=== PATIENT | male | born 1985 | race Caucasian/White ===

== ENCOUNTER 2016-08-07 06:06 | Emergency (ER) | payer SELFPAY ==
[2016-08-07] MEDS ORDERED: PENICILLIN V POTASSIUM 500 MG TABLET PO ONE (08:31)
[2016-08-07] MEDS ORDERED: HYDROCODONE/ACETAMINOPHEN 5-325 MG 6 TAB/DSPK PO PRN (08:31)
--- NOTE | 2016-08-07 08:33 | ER Document Report ---
HPI - HPI Patient complains to provider of: dental pain Onset: Other - 3 days Onset/Duration: Persistent Quality of pain: Achy Pain Level: 5 Context: Patient complains of three-day history of dental pain to right lower jaw. Patient denies any fever or facial swelling. Patient does have an appointment with the dentist next week. Associated Symptoms: Other - Dental pain. denies: Fever, Sore throat Exacerbated by: Denies Relieved by: Denies Similar symptoms previously: Yes Recently seen / treated by doctor: No - ROS ROS below otherwise negative: Yes Systems Reviewed and Negative: Yes All other systems reviewed and negative - CONSTITUTIONAL Constitutional: DENIES: Fever - EENT Notes: Dental pain - RESPIRATORY Respiratory: DENIES: Coughing - GASTROINTESTINAL Gastrointestinal: DENIES: Nausea, Patient vomiting - REPRODUCTIVE Reproductive: DENIES: : - MUSCULOSKELETAL Musculoskeletal: DENIES: Back Pain, Neck Pain - DERM Skin Color: Normal Skin Problems: None Past Medical History - General Information source: Patient - Social History Smoking Status: Former Smoker Frequency of alcohol use: Rare Drug Abuse: None Occupation: HV[employer] Family History: Arthritis, CAD, CVA, DM, Hyperlipidemia, Hypertension Pulmonary Medical History: Reports: Hx Pneumonia Renal/ Medical History: Denies: Hx Peritoneal Dialysis Musculoskeltal Medical History: Reports Hx Musculoskeletal Trauma - sprained ankle Psychiatric Medical History: Reports: Hx Attention Deficit Hyperactivity Disorder Surgical Hx: Negative - Immunizations Immunizations up to date: No Hx Diphtheria, Pertussis, Tetanus Vaccination: No Vertical Provider Document - CONSTITUTIONAL Agree With Documented VS: Yes Exam Limitations: No Limitations General Appearance: WD/WN, No Apparent Distress - INFECTION CONTROL TRAVEL OUTSIDE OF THE [place] IN LAST 30 DAYS: No - HEENT HEENT: Atraumatic, Normocephalic. negative: Pharyngeal Exudate, Pharyngeal Tenderness, Pharyngeal Erythema, Tympanic Membrane Red, Tympanic Membrane Bulging Mouth Diagram: 1 - Dental fracture, decay, no gingival abscess, no sublingual or submental swelling, no trismus. - NECK Neck: Normal Inspection, Supple. negative: Lymphadenopathy-Left, Lymphadenopathy-Right - RESPIRATORY Respiratory: Breath Sounds Normal, No Respiratory Distress O2 Sat by Pulse Oximetry: 98 - CARDIOVASCULAR Cardiovascular: Regular Rate, Regular Rhythm, No Murmur - BACK Back: Normal Inspection - MUSCULOSKELETAL/EXTREMETIES Musculoskeletal/Extremeties: MAEW - NEURO Level of Consciousness: Awake, Alert, Appropriate Motor/Sensory: No Motor Deficit - DERM Integumentary: Warm, Dry, No Rash Course - Vital Signs Vital signs: Temp Pulse Resp BP Pulse Ox 97.5 F 84 16 146/95 H 98 08/07/16 06:09 08/07/16 06:09 08/07/16 06:09 08/07/16 06:09 08/07/16 06:09 Discharge - Discharge Clinical Impression: Toothache, Elevated blood pressure reading Condition: Stable Disposition: HOME, SELF-CARE Instructions: Toothache (OM), Penicillin V K (OM), Oral Narcotic Medication ( OM) Additional Instructions: Return immediately for any new or worsening symptoms Followup with your primary care provider, call tomorrow to make a followup appointment Your blood pressure was elevated today, recheck with primary doctor in 2 days to have this reevaluated Follow-up with your dentist as planned Prescriptions: Hydrocodone/Acetaminophen [[place] 5-325 Tablet] 1 each PO Q4 PRN #12 tablet PRN Reason: Naproxen [Naprosyn 250 Nmg Tablet] 1 tab PO BID #14 tablet Penicillin V Potassium [Penicillin Vk 500 mg Tablet] 500 mg PO BID #20 tablet Referrals: [facility] [Provider Group] - Follow up as needed [facility] [Provider Group] - Follow up tomorrow
[2016-08-07 08:48] VITALS: BP 135/94
== END 2016-08-07 08:58 | disposition home or self-care (01) ==
LOC: ER 06:06
DX: K08.89 Other specified disorders of teeth and supporting structures (principal); R03.0 Elevated blood-pressure reading, without diagnosis of hypertension; R68.84 Jaw pain; Z87.891 Personal history of nicotine dependence
CPT/HCPCS: 99282

== ENCOUNTER 2018-01-27 18:40 | Observation (INO) | payer BC ==
[2018-01-27] MEDS ORDERED: LIDOCAINE 2% VISCOUS SOLN 20 ML UDCUP PO ONE (20:34)
[2018-01-27] MEDS ORDERED: MAG HYDROX/AL HYDROX/SIMETH SUSP 30 ML UDCUP PO ONE (20:34)
[2018-01-27] MEDS ORDERED: METOCLOPRAMIDE HCL ORAL SOLN 10 MG/10 ML UDCUP PO ONE (20:34)
--- NOTE | 2018-01-27 20:37 | ER Document Report ---
HPI - HPI Pain Level: 2 Notes: Patient is an otherwise healthy 32-year-old male who presents with chief complaint of ingestion of foreign body. Patient states that he swallowed a piece of steak and he feels that it got stuck. Patient reports that he immediately drank some water was able to pass the water at the time. The steak is stuck in the epigastric area. Patient speaking in full and complete sentences without difficulty and appears to be swallowing his saliva. - REPRODUCTIVE Reproductive: DENIES: : - DERM Skin Color: Normal Past Medical History - General Information source: Patient - Social History Smoking Status: Former Smoker Chew tobacco use (# tins/day): No Frequency of alcohol use: Rare Drug Abuse: None Family History: Arthritis, CAD, CVA, DM, Hyperlipidemia, Hypertension Patient has suicidal ideation: No Patient has homicidal ideation: No Pulmonary Medical History: Reports: Hx Pneumonia Renal/ Medical History: Denies: Hx Peritoneal Dialysis Musculoskeletal Medical History: Reports Hx Musculoskeletal Trauma - sprained ankle Psychiatric Medical History: Reports: Hx Attention Deficit Hyperactivity Disorder - Immunizations Immunizations up to date: No Hx Diphtheria, Pertussis, Tetanus Vaccination: No Vertical Provider Document - CONSTITUTIONAL Notes: PHYSICAL EXAMINATION: GENERAL: Well-appearing, well-nourished and in no acute distress. HEAD: Atraumatic, normocephalic. EYES: Pupils equal round and reactive to light, extraocular movements intact, sclera anicteric, conjunctiva are normal. ENT: Nares patent, oropharynx clear without exudates. Moist mucous membranes. NECK: Normal range of motion, supple without lymphadenopathy LUNGS: Breath sounds clear to auscultation bilaterally and equal. No wheezes rales or rhonchi. HEART: Regular rate and rhythm without murmurs ABDOMEN: Soft, nontender, nondistended abdomen. No guarding, no rebound. No masses appreciated. Musculoskeletal: Normal range of motion, no pitting or edema. No cyanosis. NEUROLOGICAL: Cranial nerves grossly intact. Normal speech, normal gait. Normal sensory, motor exams PSYCH: Normal mood, normal affect. SKIN: Warm, Dry, normal turgor, no rashes or lesions noted. - INFECTION CONTROL TRAVEL OUTSIDE OF THE [place] IN LAST 30 DAYS: No Course - Re-evaluation Re-evalutation: Patient speaking in full and complete sentences, swallowing his saliva without difficulty. Consulted case with Dr. Perez who recommended attempting a GI cocktail as patient states he was able to tolerate p.o. intake at home after the ingestion. Attempted GI cocktail, patient immediately vomited and states now he feels the piece of steak higher than when he arrived. Consulted surgery, Dr. Helton who recommends 1 mg glucagon IV and he will come to see the patient. Dr. Helton accepts patient for admission, he will take him for endoscopy. - Vital Signs Vital signs: Temp Pulse Resp BP Pulse Ox 98.0 F 65 18 132/86 H 99 01/27/18 19:16 01/27/18 19:16 01/27/18 19:16 01/27/18 19:16 01/27/18 19:16 - Laboratory Result Diagrams: 01/28/18 04:59 01/28/18 04:59 Discharge - Discharge Clinical Impression: Foreign body in esophagus Qualifiers: Encounter type: initial encounter Qualified Code(s): T18.108A - Unspecified foreign body in esophagus causing other injury, initial encounter Condition: Good Disposition: ADMITTED OBSERVATION Admitting Provider: Surgicalist Unit Admitted: Medical Floor
[2018-01-27] MEDS ORDERED: GLUCAGON,HUMAN RECOMB 1 MG INJ IV ONE (20:58)
--- NOTE | 2018-01-27 21:33 | PDOC H&P ---
History of Present Illness Admission Date/PCP: 01/27/18 Patient complains of: dysphagia after swallowing a large piece of steak. History of Present Illness: ORLANDO LYONS is a 32 year old male with a c/o of chest discomfort, dysphagia , and inability to hand;e his own secretions. He was given a GI cocktail and was unable to swallow it and vomited it entirely. He reports to feel the food bolus in between the middle and upper third, it moves up and down; he is unable to swallow it completely and clear his esophagus. Past Medical History Pulmonary Medical History: Reports: Pneumonia Psychiatric Medical History: Reports: Attention Deficit Hyperactivity Disorder Social History Smoking Status: Former Smoker Frequency of Alcohol Use: Occasional Hx Recreational Drug Use: No Drugs: None Family History Family History: Arthritis, CAD, CVA, DM, Hyperlipidemia, Hypertension Parental Family History Reviewed: No Children Family History Reviewed: No Sibling(s) Family History Reviewed.: No Medication/Allergy Home Medications: Hydrocodone/Acetaminophen [[place] 5-325 Tablet] 1 each PO Q4 PRN #15 tablet 04/05 Ibuprofen [Motrin 600 Mg Tablet] 600 mg PO Q6H PRN #24 tablet 04/05/14 Penicillin V Potassium [Penicillin Vk 500 mg Tablet] 500 mg PO BID #20 tablet Penicillin V Potassium [Penicillin Vk 250 mg Tablet] 250 mg PO Q6 #28 tablet 04/22 Tramadol HCl 50 mg PO PRN PRN #15 tablet 11/17/15 Clindamycin HCl [Cleocin HCl] 300 mg PO Q6 #28 capsule 11/19/15 Penicillin V Potassium [Penicillin Vk 500 mg Tablet] 500 mg PO QID #40 tablet Hydrocodone/Acetaminophen [[place] 5-325 Tablet] 1 each PO Q4 PRN #12 tablet 08/07 Naproxen [Naprosyn 250 Nmg Tablet] 1 tab PO BID #14 tablet 08/07/16 Penicillin V Potassium [Penicillin Vk 500 mg Tablet] 500 mg PO BID #20 tablet Allergies/Adverse Reactions: No Known Allergies Allergy (Verified 01/27/18 18:46) Physical Exam Vital Signs: Temp Pulse Resp BP Pulse Ox 98.0 F 65 18 132/86 H 99 01/27/18 19:16 01/27/18 19:16 01/27/18 19:16 01/27/18 19:16 01/27/18 19:16 Intake & Output 01/26/18 01/27/18 01/28/18 06:59 06:59 06:59 Weight 95.6 kg General appearance: PRESENT: mild distress, well-developed Head exam: PRESENT: atraumatic Eye exam: PRESENT: EOMI Mouth exam: PRESENT: moist Teeth exam: PRESENT: edentulous Neck exam: PRESENT: full ROM Respiratory exam: PRESENT: chest wall tenderness Cardiovascular exam: PRESENT: RRR GI/Abdominal exam: PRESENT: soft Rectal exam: PRESENT: deferred Extremities exam: PRESENT: full ROM Musculoskeletal exam: PRESENT: full ROM Neurological exam: PRESENT: alert, oriented to time, oriented to situation, normal gait Psychiatric exam: PRESENT: appropriate affect Skin exam: PRESENT: warm Assessment & Plan - Diagnosis (2) Food impaction of esophagus Qualifiers: Encounter type: initial encounter Qualified Code(s): T18.128A - Food in esophagus causing other injury, initial encounter Is this a current diagnosis for this admission?: Yes - Plan Summary Plan Summary: A/ Esophageal food impaction (steak) Patient unable to clear the esophagus and handle his own secretions P/ Endoscopic removal of esophageal food impaction Procedure, risks, benefits, complications, including bleeding form the esophagus or esophageal perforation requiring transfer to a tertiary center, have been discussed with the patient, his questions were answered, and he decided to proceed.
[2018-01-27] MEDS ORDERED: ONDANSETRON HCL INJ/PF 4 MG/2 ML SDV ONE (22:01)
[2018-01-27] MEDS ORDERED: DIPHENHYDRAMINE HCL 50 MG/ML VIAL ONE (22:01)
[2018-01-27] MEDS ORDERED: EPINEPHRINE INJ 1 MG/10 ML DISP.SYRIN ONE (22:02)
[2018-01-27] MEDS ORDERED: FENTANYL CITRATE INJ/PF 100 MCG/2 ML AMPUL ONE (22:02)
[2018-01-27] MEDS ORDERED: FLUMAZENIL INJ 0.5 MG/5 ML VIAL ONE (22:02)
[2018-01-27] MEDS ORDERED: GLUCAGON,HUMAN RECOMB 1 MG INJ ONE (22:02)
[2018-01-27] MEDS ORDERED: MIDAZOLAM 2 MG/2 ML INJ ONE (22:02)
[2018-01-27] MEDS ORDERED: NALOXONE HCL INJ/PF 0.4 MG/1 ML SDV ONE (22:02)
[2018-01-27] MEDS ORDERED: BENZOCAINE 20% AEROSOL SPRAY 60 GM ONE (22:03)
[2018-01-27] MEDS ORDERED: PROPOFOL INJ 200 MG/20 ML VIAL IV ONE ×4 (22:28→23:37)
[2018-01-27] MEDS ORDERED: FENTANYL CITRATE INJ/PF 100 MCG/2 ML AMPUL IV PRN (23:09)
[2018-01-27] MEDS ORDERED: DIPHENHYDRAMINE HCL 50 MG/ML VIAL IV PRN (23:09)
--- NOTE | 2018-01-27 23:35 | Operative Report ---
Nonrecallable Operative Report DATE OF SURGERY: 01/27/18 PREOPERATIVE DIAGNOSIS: esopahgeal impacted food bolus POSTOPERATIVE DIAGNOSIS: same OPERATION: endoscopic removal of esophageal impacted food bolus SURGEON: TOMAS MCMANUS ANESTHESIA: LMAC TISSUE REMOVED OR ALTERED: food bolus (meat) COMPLICATIONS: none ESTIMATED BLOOD LOSS: n/a INTRAOPERATIVE FINDINGS: large food bolus impacted in midesophagus PROCEDURE: see dictation
[2018-01-27] MEDS ORDERED: NORMAL SALINE 1000 ML 1,000 ML IV PRN (23:41)
[2018-01-27] MEDS ORDERED: ONDANSETRON HCL INJ/PF 4 MG/2 ML SDV IV PRN (23:41)
[2018-01-27] MEDS ORDERED: DEXTROSE 50%-WATER 25 GM/50 ML DISP.SYRIN IV PRN ×2 (23:41)
[2018-01-27] MEDS ORDERED: DEXTROSE 40% GEL 15 GM TUBE PO PRN ×2 (23:41)
[2018-01-27] MEDS ORDERED: MORPHINE SULFATE 10 MG/ML INJ IV PRN (23:41)
[2018-01-27] MEDS ORDERED: GLUCAGON,HUMAN RECOMB 1 MG INJ SUBCUT PRN (23:41)
[2018-01-28] MEDS ORDERED: FAMOTIDINE INJ/PF 20 MG/2 ML SDV IV ONE (00:30)
--- NOTE | 2018-01-28 00:58 | RADIOLOGY REPORT (SQ) ---
EXAM DESCRIPTION: XR CHEST 1 VIEW COMPLETED DATE/TME: 01/28/2018 00:00 CLINICAL HISTORY: s/p endoscopic removal of esophageal meat bolus COMPARISON: None. FINDINGS: Single frontal view of the chest. The cardiomediastinal silhouette has normal size and contour. No consolidation, pneumothorax, or pleural effusion. No pneumomediastinum identified. No displaced rib fractures identified. Upper abdominal soft tissues are unremarkable. IMPRESSION: 1. No acute pulmonary process identified.
--- NOTE | 2018-01-28 03:31 | OPERATIVE REPORT E ---
Operative Report NAME: ORLANDO LYONS : 1985 AGE: 32Y DATE OF SURGERY: 01/27/2018 ROOM: 321 PREOPERATIVE DIAGNOSIS: ESOPHAGEAL IMPACTED FOOD BOLUS. POSTOPERATIVE DIAGNOSIS: ESOPHAGEAL IMPACTED FOOD BOLUS. OPERATION: Endoscopic removal of impacted esophageal bolus (meat). SURGEON: TOMAS MCMANUS M.D. LOSS PREVENTION AND SAFETY MANAGER: None. ANESTHESIA: MAC, provided by anesthesiologist. FLUIDS: 900 COMPLICATIONS: None. BLEEDING: None. INDICATION AND FINDINGS: A 32-year-old male who presented to the emergency room late in the evening complaining of dysphagia, unable to swallow and to handle his own secretions following ingestion of a large bite of steak. The patient was offered a GI cocktail, and as soon as he drank it he vomited the entire volume of fluid. A decision was made to take him to surgery to undergo endoscopic removal of the esophageal impacted food bolus. The procedure, risks, benefits, and complications including bleeding and/or injury to the esophagus with possible perforation which may require transfer to a tertiary center for repair, were discussed with the patient, who consents to the above, and decided to proceed. DESCRIPTION OF PROCEDURE: The procedure was done in the operating room. The patient placed in lateral decubitus on the stretcher. Anesthesia provided by the anesthesiologist. A mouthpiece was in place in between the patient's teeth and the gastroscope with overtube was inserted through the mouth into esophagus. At this point, the overtube was gently advanced through the mouth into the upper pharynx and the upper portion in the esophagus. The scope was then advanced and a large piece of impacted food bolus was identified in the midesophagus. Using a 4-prong grasper, the food bolus was initially broken in pieces. Multiple attempts were made to distally advance the bolus, but this could not be dislodged. Eventually, following multiple passes with the grasper, the food bolus was disimpacted. It was finally grasped with the 4-finger grasper. The scope together with the food bolus was withdrawn from the esophagus into the pharynx, and along with then the overtube , it was withdrawn from the patient's mouth. The endoscope was then re-inserted through the mouth into the pharynx, the esophagus, and stomach. The stomach was found to be empty. A moderate amount of clear fluid found within the stomach was aspirated. The instrument was then slowly withdrawn through esophagus. No area of injuries or active bleeding were noted in the distal esophagus, mid, or upper esophagus, as well as the pharynx. A small amount of blood was noted in the mouth, most likely due to self-injury because of the patient's broken and sharp teeth edges affected by cavities. The mouthpiece was then removed. The patient was transferred to the recovery room in satisfactory condition. A chest x-ray was obtained to rule out any injury to the esophagus. DICTATING PHYSICIAN: TOMAS MCMANUS M.D. [id number] PHY#: [id number] ID: [id number] JOB#: [id number] ACCT: [id number] cc:TOMAS MCMANUS M.D. > MTDD
[2018-01-28 05:24] LABS: ABSOLUTE EOSINOPHILS # (AUTO) 0.2 10^3/uL (0.0-0.6); ABSOLUTE LYMPHOCYTES (AUTO) 3.9 10^3/uL (0.5-4.7); ABSOLUTE MONOCYTES (AUTO) 0.7 10^3/uL (0.1-1.4); ABSOLUTE NEUT (AUTO) 2.8 10^3/uL (1.7-8.2); BASOPHILS % (AUTO) 0.5 % (0-2); EOSINOPHILS % (AUTO) 2.7 % (0-6); HEMATOCRIT 36.6 % (37.9-51.0); HEMOGLOBIN 12.3 g/dL (13.5-17.0); LYMPHOCYTES % (AUTO) 51.7 % (13-45); MEAN CORPUSCULAR HEMOGLOBIN 27.8 pg (27.0-33.4); MEAN CORPUSCULAR HGB CONC 33.6 g/dL (32.0-36.0); MEAN CORPUSCULAR VOLUME 83 fl (80-97); MONOCYTES % (AUTO) 8.9 % (3-13); PLATELET COUNT 207 10^3/uL (150-450); RED BLOOD COUNT 4.43 10^6/uL (4.35-5.55); RED CELL DISTRIBUTION WIDTH 12.8 % (11.5-14.0); SEGMENTED NEUTROPHILS % (AUTO) 36.2 % (42-78); TOTAL CELLS COUNTED % (AUTO) 100 %; WHITE BLOOD COUNT 7.6 10^3/uL (4.0-10.5)
[2018-01-28 06:06] LABS: ANION GAP 5 (5-19); BLOOD UREA NITROGEN 11 mg/dL (7-20); CALCIUM 8.6 mg/dL (8.4-10.2); CARBON DIOXIDE 28 mmol/L (22-30); CHLORIDE 108 mmol/L (98-107); GLUCOSE 85 mg/dL (75-110); POTASSIUM 4.5 mmol/L (3.6-5.0); SODIUM 140.7 mmol/L (137-145)
[2018-01-28 07:52] VITALS: BP 109/78
--- NOTE | 2018-01-28 08:09 | PDOC PROGRESS REPORT ---
Subjective Progress Note for:: 01/28/18 Subjective:: patient c/o sore throat and can swallow water and his own secretions Reason For Visit: FOREIGN BODY OF ESOPHAGUS Physical Exam Vital Signs: Temp Pulse Resp BP Pulse Ox 98.3 F 55 L 18 109/78 97 01/28/18 07:42 01/28/18 07:42 01/28/18 07:42 01/28/18 07:42 01/28/18 07:42 Intake & Output 01/27/18 01/28/18 01/29/18 06:59 06:59 06:59 Intake Total 1450 Output Total 0 Balance 1450 Weight 95.3 kg General appearance: PRESENT: no acute distress, cooperative Mouth exam: PRESENT: neck supple Respiratory exam: PRESENT: clear to auscultation deondre GI/Abdominal exam: PRESENT: soft Results Laboratory Results: 01/28/18 04:59 01/28/18 04:59 01/28/18 01/28/18 04:59 04:59 WBC 7.6 RBC 4.43 Hgb 12.3 L Hct 36.6 L MCV 83 MCH 27.8 MCHC 33.6 RDW 12.8 Plt Count 207 Seg Neutrophils % 36.2 L Lymphocytes % 51.7 H Monocytes % 8.9 Eosinophils % 2.7 Basophils % 0.5 Absolute Neutrophils 2.8 Absolute Lymphocytes 3.9 Absolute Monocytes 0.7 Absolute Eosinophils 0.2 Absolute Basophils 0.0 Sodium 140.7 Potassium 4.5 Chloride 108 H Carbon Dioxide 28 Anion Gap 5 BUN 11 Creatinine 1.03 Est GFR ( Amer) > 60 Est GFR (Non-Af Amer) > 60 Glucose 85 Calcium 8.6 Impressions: Chest X-Ray 01/28/18 00:00 IMPRESSION: 1. No acute pulmonary process identified. Assessment & Plan - Diagnosis (2) Food impaction of esophagus Qualifiers: Encounter type: initial encounter Qualified Code(s): T18.128A - Food in esophagus causing other injury, initial encounter Is this a current diagnosis for this admission?: Yes - Plan Summary Plan Summary: A/ POD #1 s/p endoscopic esophageal food disimpaction Patient comfortable, no c/o patient doing well, able to swallow water and his own secretions Postprocedural C-Xray is WNL, no acute findoings P/ Home today Gargle throat with water and salt (1 teaspoon of salt in 1 glass of water) every 1-2 hours for the next few days Follow a liquid or full liqiud diet x 1-3 days, then advance solid food as tolerated Ice chips and ice cream to sooth throat Can shower or bathe Return to work in AM Follow up with [facility] ([facility]) in 2 weeks
--- NOTE | 2018-01-28 08:35 | DISCHARGE SUMMARY E ---
Discharge Summary NAME: ORLANDO LYONS : 1985 AGE: 32Y ADMITTED: 01/27/2018 DISCHARGED: 01/28/2018 FINAL DIAGNOSIS: ESOPHAGEAL IMPACTION SECONDARY TO FOOD BOLUS. PROCEDURE: Emergent endoscopic disimpaction of esophageal impacted food bolus on January 27. COMPLICATIONS: None. HOSPITAL COURSE: Healthy 32-year-old male who presented to the emergency room late in the evening of January 27 complaining of dysphagia, unable to handle his own saliva following the ingestion of a large bite of steak at dinnertime. The patient was taken urgently to surgery and underwent endoscopic esophageal food disimpaction. The procedure was uneventful without complication. The patient was admitted overnight for observation. Vital signs were stable. Physical exam was unremarkable. The patient was able to swallow his own saliva and could eat his clear liquid breakfast. The patient was discharged home after he ate breakfast. DISCHARGE ORDERS: The patient was discharged on January 28, 2018. Follow up in Surgery Office in 2 weeks. The patient was advised to remain on liquid and/or full liquid diet for the next 1 to 2 days. He was instructed to rinse and gargle his throat with water and salt (1 teaspoon of salt in a glass of water) several times a day. The patient can return to work anytime. Activities as tolerated. No prescription medications provided. DICTATING PHYSICIAN: TOMAS MCMANUS M.D. [id number] MICHELLEY#: [id number] ID: [id number] JOB#: [id number] ACCT: [id number] cc:TOMAS MCMANUS M.D. . [place] [facility], [facility]
[2018-01-28] MEDS ORDERED: FAMOTIDINE INJ/PF 20 MG/2 ML SDV IV SCH (10:00)
== END 2018-01-28 10:15 | disposition home or self-care (01) ==
LOC: ER 18:40 → EH 22:41 → 3W 01-28 00:21
PROVIDERS: ATTEND Surgery
PROC: 0DC28ZZ Extirpation of Matter from Middle Esophagus, Via Natural or Artificial Opening Endoscopic (ICD-10-PCS; principal; 2018-01-27 21:59)
DX: T18.128A Food in esophagus causing other injury, initial encounter (principal); Z87.891 Personal history of nicotine dependence
CPT/HCPCS: 99284; 43247; 36415; 85025; 80048; 71045; G0378; J2270; J2704; S0028; 731; J0171; J1200; J1610; J2250; J2310; J2405; J3010; J3490

== ENCOUNTER 2018-12-21 19:37 | Emergency (ER) | payer BC ==
[2018-12-21] MEDS ORDERED: GLUCAGON,HUMAN RECOMB 1 MG INJ IV ONE (19:57)
--- NOTE | 2018-12-21 20:01 | ER Document Report ---
ED Medical Screen (RME) - General Chief Complaint: Swallowed Foreign Body Stated Complaint: POSSIBLE MEAT LODGED IN ESOPHAGUS Time Seen by Provider: 12/21/18 19:50 Mode of Arrival: Ambulatory Information source: Patient Notes: Patient presents complaining of food bolus in the esophagus. Patient states he was eating chicken and he has poor dentition so he does not chew his food well. Patient states he was talking and eating and felt like the food got stuck about 1 hour prior to arrival. Patient unable to swallow his saliva. Patient states that this has happened in the past. Patient denies any difficulty breathing. I have greeted and performed a rapid initial assessment of this patient. A comprehensive ED assessment and evaluation of the patient, analysis of test results and completion of the medical decision making process will be conducted by additional ED providers. TRAVEL OUTSIDE OF THE [place] IN LAST 30 DAYS: No - Related Data Allergies/Adverse Reactions: No Known Allergies Allergy (Verified 12/21/18 19:40) Past Medical History - Social History Chew tobacco use (# tins/day): No Frequency of alcohol use: Rare Drug Abuse: None Pulmonary Medical History: Reports: Hx Pneumonia Renal/ Medical History: Denies: Hx Peritoneal Dialysis Musculoskeltal Medical History: Reports Hx Musculoskeletal Trauma - sprained ankle Psychiatric Medical History: Reports: Hx Attention Deficit Hyperactivity Disorder - Immunizations Immunizations up to date: No Hx Diphtheria, Pertussis, Tetanus Vaccination: No Physical Exam - Vital signs Vitals: Pulse Resp BP Pulse Ox 78 16 164/103 H 100 12/21/18 19:56 12/21/18 19:56 12/21/18 19:56 12/21/18 19:56 - General Notes: Patient continually spitting up saliva into a bottle. Respirations unlabored. Course - Vital Signs Vital signs: Temp Pulse Resp BP Pulse Ox 78 16 155/105 H 100 12/21/18 19:56 12/21/18 19:56 12/21/18 19:58 12/21/18 19:56
[2018-12-21] MEDS ORDERED: ONDANSETRON HCL INJ/PF 4 MG/2 ML SDV IV ONE (20:08)
--- NOTE | 2018-12-21 22:04 | RADIOLOGY REPORT (SQ) ---
XR CHEST 2 VIEWS CLINICAL STATEMENT: esoph food bolus impaction COMPARISON: 01/28/2018 FINDINGS: Cardiomediastinal silhouette is within normal limits. There is no focal lung consolidation or pleural effusion. No evidence of pulmonary edema or pneumothorax. IMPRESSION: No acute cardiopulmonary disease.
--- NOTE | 2018-12-21 22:37 | ER Document Report ---
HPI - HPI Patient complains to provider of: food bolus impaction Time Seen by Provider: 12/21/18 19:50 Onset: Just prior to arrival Onset/Duration: Sudden, Persistent, Gone Quality of pain: Achy, Burning, Sharp Severity: Moderate Pain Level: 3 Context: 33 yr old male pt here for concern he has a small piece of boneless fried chicken stuck in his throat that started about an hour emr analyst. he was initially seen by the PIT provider and initally was having to spit his saliva into a cup leaning forward as he couldn't get it past this likely esophageal food bolus. he feels like it got stuck about an hour emr analyst and he couldn't cough/vomit it up or get fluids to push it down or past it so he came in. he was able to speak in shortening sentences however. hx of this once before in feb 2018 and required gi to do an egd to remove it. he has chronic diffusely poor dentition and was told he needed dentures but can't afford it and he states secondary to his chronic poor dentition which is at its baseline-no worse, that he can't chew his food really good and has to try to swallow larger pieces due to the chronic dental pain. this has been going on for several months to years and is unchanged. he hasn't had any esophageal dilations or any other procedures or f/u for this with a dentist or gi. states he tries to eat softer foods. on my exam after the pt was brought back to a room from triage the pt states he felt the food bolus spontaneously pass before he was given the glucagon and zofran. states these weren't given to him since he had passed it and were held via nursing. pt states he was just headed to the bathroom and leaned forward to unzip his pants to start urinating while in the ed and he felt the likely food bolus move and then he could spontaneously swallow normally again without any symptoms. pt is drinking a mountain dew in front of me in the room to near about completion when i walk in and has no sx and feels back to baseline and is requesting dc. no trauma or injury. no hx of diabetes or asthma. normal bms. no uti sx. no testicular pain/swelling, penile dc/rash/lesions, or concerns for stds. denies swelling or hx of hernias. no abd surgeries unless otherwise noted. no recent abx or steroids other than recent abx for his teeth. no hx of gerd, gb dz, pancreatitis, gi bleed, ulcers, ibs, or crohns. no sick contacts. no uri sx. no rash. no excessive nsaid use or etoh. no recent illness. pain worse with eating. denies changes in color or caliber of stool. no other associated sx. Exacerbated by: Food Relieved by: Remaining still, Other - spitting out saliva and leaning forward Similar symptoms previously: Yes Recently seen / treated by doctor: No - ROS Systems Reviewed and Negative: Yes All other systems reviewed and negative - to include 10 systems unless mentioned in the hpi - REPRODUCTIVE Reproductive: DENIES: : - DERM Skin Color: Normal Past Medical History - General Information source: Patient - Social History Smoking Status: Former Smoker Chew tobacco use (# tins/day): No Frequency of alcohol use: Rare Drug Abuse: None Family History: Arthritis, CAD, CVA, DM, Hyperlipidemia, Hypertension Patient has suicidal ideation: No Patient has homicidal ideation: No Pulmonary Medical History: Reports: Hx Pneumonia EENT Medical History: Reports: Other - chronic diffuse dental caries awaiting dentures when he can afford it. Renal/ Medical History: Denies: Hx Peritoneal Dialysis GI Medical History: Reports: Hx Endoscopy, Other - prior esophageal food bolus impaction requiring EGD, solid food dysphagia Psychiatric Medical History: Reports: Hx Attention Deficit Hyperactivity Disorder - Immunizations Immunizations up to date: Yes Vertical Provider Document - CONSTITUTIONAL Notes: >>>> PHYSICAL_EXAM: GENERAL_APPEARANCE: well_nourished, alert, cooperative, no_acute_distress, no obvious_discomfort. Pleasant, young white male who appears slightly older than stated age, drinking mountain dew with no issues normally, smiling, speaking in full sentences, easily sitting up, in no sign of pain or resp distress, nontoxic, no one is with him VITALS: reviewed, see vital signs table. HEAD: normocephalic. atraumatic. no hanley signs. no raccoon eyes. EYES: PERRL, EOMI, (-)scleral icterus. NOSE: no_nasal_discharge. MOUTH: (-)decreased moisture. extremely poor dentition diffusely with some blackening of the teeth and most of the teeth that are left are broken, jagged, and some eroded to the gum line. no gingival or buccal swelling. no sign of abscess or drainable fluid collection. no drainage or bleeding. no sign of ludwigs. no drooling, tripoding, voice change, or stridor. no oral lesions. no tongue or lip swelling. tongue and uvula midline. no blood in the posterior pharynx or visible epiglottis, airway obstruction or fb. THROAT: no_tonsilar_inflammation/hypertrophy/exudate. no lymphadenopathy NECK: supple, no_neck_tenderness, full rom. full strength. no meningeal signs. BACK: no_back_tenderness. CHEST_WALL: no_chest_tenderness. LUNGS: no_wheezing, (-)accessory muscle use, good air exchange bilateral. HEART: normal_rate, normal_rhythm, ABDOMEN: normal_BS, soft, abdomen-diffuse non-tender, (-)guarding, (-)rebound, no distension or peritoneal signs. neg murphys. neg mcburneys. no cva tenderness GENITALS:deferred RECTAL: deferred EXTREMITIES: strength 5/5 in all_extremities, good pulses in all_extremities, no_edema, no_swelling\tenderness. full rom. normal gait. brisk cap refill. good hand lead infrastructure architect. SKIN: warm, dry, good_color, no rash. no grossly visible overlying skin changes to suggest trauma unless otherwise noted. NEURO: motor_intact, sensory_intact. cranial nerves 2-12 intact, cerebellar fxn intact MENTAL_STATUS: normal_affect, speech_clear, oriented_X_3, responds_appropriately to questions. - INFECTION CONTROL TRAVEL OUTSIDE OF THE [place] IN LAST 30 DAYS: No Course - Re-evaluation Re-evalutation: pt here for concern he has a small piece of boneless fried chicken stuck in his throat that started about and hour emr analyst. he was initially seen by the PIT provider and having to spit his saliva into a cup leaning forward as he couldn't get it past this likely esophageal food bolus. he feels like it got stuck about an hour emr analyst and he couldn't cough/vomit it up or get fluids to push it down or past it so he came in. hx of this once before in feb 2018 and required gi to do an egd to remove it. he has chronic diffusely poor dentition and was told he needed dentures but can't afford it and he states secondary to his chronic poor dentition which is at its baseline-no worse, that he can't chew his food really good and has to try to swallow larger pieces due to the chronic dental pain. this has been going on for several months to years and is unchanged. he hasn't had any esophageal dilations or any other procedures or f/u for this with a dentist or gi. states he tries to eat softer foods. on my exam after the pt was brought back to a room from triage the pt states he felt the food bolus spontaneously pass before he was given the glucagon and zofran. states these weren't given to him since he had passed it and were held via nursing. pt states he was just headed to the bathroom and leaned forward to unzip his pants to start urinating and he felt it move and then could spontaneously swallow normally again without any symptoms. pt is drinking a mountain dew in front of me in the room to near about completion when i walk in and has no sx and feels back to baseline and is requesting dc. he has no abd ttp on exam. afebrile. speaking in full and normal sentences. vitals wnl. he is tolerating po now and his secretions normally. no trouble breathing or swallowing. advised he can try otc acid reflux meds to help his sx but that he needs to f/u with dentist to get his teeth fixed and also pcp/gi for further workup of his solid food dysphagia as well. he was just recently on abx for his teeth so will hold off on those at this time. advised to advance his diet from liquids to bland soft puree diet to regular diet slowly as tolerated. cxr neg per rad and reviewed by myself. advised to f/u with pcp/dentist/gi in 1-2 days. return for any worsening symptoms. vss. well appearing. satting well on ra. neurononfocal. pt understands and agrees to plan. On reexam, pt improved and became asymptomatic spontaneously and is now tolerating po with no issues normally again, he remained stable. nontoxic. well appearing. requesting to go home. Documentation achieved through voice recording which my lead to some occasional accidental typographical errors. Extensive efforts have been made to proof read documentation to make sure these are the least as possible. Category Date Time Status CHEST 2 VIEWS [RAD] Stat Exams 12/21/18 21:05 Completed Glucagon,Human Recombinant [Glucagen Inj 1 mg Vial] Med 12/21/18 19:57 Discontinued 1 mg IV NOW ONE -not given Ondansetron HCl/Pf [Zofran Inj/Pf 4 mg/2 ml Sdv] Med 12/21/18 20:08 Discontinued 8 mg IV NOW ONE -not given 12/24/18 16:46 - Vital Signs Vital signs: Temp Pulse Resp BP Pulse Ox 98.2 F 64 20 144/96 H 99 12/21/18 22:09 12/21/18 22:09 12/21/18 22:09 12/21/18 22:09 12/21/18 22:09 Temp Pulse Pulse Resp BP BP Pulse Ox 12/21/18 22:42 62 18 152/100 H 97 12/21/18 22:09 98.2 F 64 20 144/96 H 99 12/21/18 19:58 155/105 H 12/21/18 19:56 78 16 164/103 H 100 - Diagnostic Test Radiology reviewed: Image reviewed, Reports reviewed Radiology results interpreted by me: Chest X-Ray 12/21/18 21:05 IMPRESSION: No acute cardiopulmonary disease. Discharge - Discharge Clinical Impression: Dental caries, Intermittent dysphagia Food impaction of esophagus Qualifiers: Encounter type: initial encounter Qualified Code(s): T18.128A - Food in esophagus causing other injury, initial encounter Condition: Good Disposition: HOME, SELF-CARE Instructions: Esophageal Food Impaction ([facility]) Additional Instructions: Follow-up with PCP/GI/dentist in 1 to 2 days. Return for any worsening symptoms. drink plenty of fluids. soft bland diet. over the counter acid reflux medications as needed for any reflux symptoms Referrals: MARK FULTON MD [NO LOCAL MD] - Follow up in 3-5 days
[2018-12-21 22:43] VITALS: BP 152/100
== END 2018-12-21 22:42 | disposition home or self-care (01) ==
LOC: ER 19:37
DX: T18.128A Food in esophagus causing other injury, initial encounter (principal); K02.9 Dental caries, unspecified; R13.19 Other dysphagia; X58.XXXA Exposure to other specified factors, initial encounter
CPT/HCPCS: 71046; 99283

== ENCOUNTER 2019-12-24 18:05 | Emergency (ER) | payer BC ==
[2019-12-24] MEDS ORDERED: GLUCAGON,HUMAN RECOMB 1 MG INJ SUBCUT STA (18:33)
--- NOTE | 2019-12-24 18:36 | ER Document Report ---
ED Medical Screen (RME) - General Chief Complaint: Swallowed Foreign Body Stated Complaint: SWALLOWED FOREIGN BODY Primary Care Provider: CLEOPATRA YADAV MD [Primary Care Provider] - Follow up as needed TRAVEL OUTSIDE OF THE [place] IN LAST 30 DAYS: No - HPI Notes: 12/24/19 18:34 34-year-old male presents to the emergency room for evaluation of having a piece of meat stuck in his throat after eating at 1330 today. Patient reports he had a similar issue over a year ago where he felt like he had food stuck in his throat, had an endoscopy which she states was normal. Patient recently had his upper teeth removed and has an upper denture in place, states he was making beef tips today and feels like have an endocrine half-inch piece of meat got stuck in his throat. Patient states he has vomited 3 times since this started. Denies any chest pain shortness of breath, abdominal pain. I have greeted and performed a rapid initial assessment of this patient. A comprehensive ED assessment and evaluation of the patient, analysis of test results and completion of the medical decision making process will be conducted by additional ED providers. PHYSICAL EXAMINATION: GENERAL: Well-appearing, well-nourished and in no acute distress. HEAD: Atraumatic, normocephalic. EYES: Pupils equal round extraocular movements intact, conjunctiva are normal. ENT; uvula midline. No posterior erythema. No drooling no trismus noted NECK: Normal range of motion CV: s1, s2 regular LUNGS: No respiratory distress Musculoskeletal: Normal range of motion NEUROLOGICAL: Normal speech, normal gait. Speaking in full sentences without any issue SKIN: Warm, Dry, normal turgor, no rashes or lesions noted. - Related Data Allergies/Adverse Reactions: No Known Allergies Allergy (Verified 12/21/18 19:40) Home Medications: prn xanax Past Medical History - Social History Chew tobacco use (# tins/day): No Frequency of alcohol use: Rare Drug Abuse: None Pulmonary Medical History: Reports: Hx Pneumonia Renal/ Medical History: Denies: Hx Peritoneal Dialysis GI Medical History: Reports: Hx Endoscopy Musculoskeltal Medical History: Reports Hx Musculoskeletal Trauma - sprained ankle Psychiatric Medical History: Reports: Hx Attention Deficit Hyperactivity Disorder - Immunizations Immunizations up to date: Yes Hx Diphtheria, Pertussis, Tetanus Vaccination: No Physical Exam - Vital signs Vitals: Temp Pulse Resp BP Pulse Ox 98.5 F 113 H 20 163/99 H 100 12/24/19 18:11 12/24/19 18:11 12/24/19 18:11 12/24/19 18:11 12/24/19 18:11 Course - Vital Signs Vital signs: Temp Pulse Resp BP Pulse Ox 98.5 F 113 H 20 163/99 H 100 12/24/19 18:11 12/24/19 18:11 12/24/19 18:11 12/24/19 18:11 12/24/19 18:11 Doctor's Discharge - Discharge Referrals: CLEOPATRA YADAV MD [Primary Care Provider] - Follow up as needed
--- NOTE | 2019-12-24 19:10 | RADIOLOGY REPORT (SQ) ---
EXAM DESCRIPTION: CHEST 2 VIEWS IMAGES COMPLETED DATE/TIME: 12/24/2019 6:56 pm REASON FOR STUDY: Feels like a piece of food stuck in his throat COMPARISON: 12/21/2018 EXAM PARAMETERS: NUMBER OF VIEWS: two views TECHNIQUE: Digital Frontal and Lateral radiographic views of the chest acquired. RADIATION DOSE: NA LIMITATIONS: none FINDINGS: LUNGS AND PLEURA: No opacities, masses or pneumothorax. No pleural effusion. MEDIASTINUM AND HILAR STRUCTURES: No masses or contour abnormalities. HEART AND VASCULAR STRUCTURES: Heart normal size. No evidence for failure. BONES: No acute findings. HARDWARE: None in the chest. OTHER: No other significant finding. IMPRESSION: NO ACUTE RADIOGRAPHIC FINDING IN THE CHEST. TECHNICAL DOCUMENTATION: JOB ID: [id number] 2010 [employer]- All Rights Reserved Reading location - IP/workstation name: [email or web address]
--- NOTE | 2019-12-24 19:14 | RADIOLOGY REPORT (SQ) ---
EXAM DESCRIPTION: SOFT TISSUE NECK IMAGES COMPLETED DATE/TIME: 12/24/2019 6:56 pm REASON FOR STUDY: Feels like a piece of food stuck in his throat COMPARISON: None. NUMBER OF VIEWS: Two views. TECHNIQUE: AP and lateral radiographic image of the soft tissues of the neck. LIMITATIONS: None. FINDINGS: EPIGLOTTIS: Normal. Contour normal. Aryepiglottic folds normal. PREVERTEBRAL SOFT TISSUES: Normal. No soft tissue swelling. SUBGLOTTIC AREA: Normal. No narrowing. RETROPHARYNGEAL SPACE: Normal. No soft tissue masses. BONES: No significant findings. LUNG APICES: Normal. OTHER: No radiopaque foreign body. No other significant finding. IMPRESSION: NEGATIVE STUDY OF THE SOFT TISSUES OF THE NECK. TECHNICAL DOCUMENTATION: JOB ID: [id number] 2010 [employer]- All Rights Reserved Reading location - IP/workstation name: [email or web address]
--- NOTE | 2019-12-24 22:26 | ER Document Report ---
ED General - General Chief Complaint: Swallowed Foreign Body Stated Complaint: SWALLOWED FOREIGN BODY Time Seen by Provider: 12/24/19 22:23 Primary Care Provider: MARIA DE JESUS AVINA MD [ACTIVE STAFF] - Follow up as needed CLEOPATRA YADAV MD [Primary Care Provider] - Follow up as needed Notes: NOTES FROM Dec 1 year ago Patient Name: ORLANDO LYONS Date of : 85 Patient Status: Emergency Emergency Provider: JOANIE DAVIS Date: 12/21/18 22:34 Initialization Date: 12/21/18 22:34 HPI - HPI Patient complains to provider of: food bolus impaction Time Seen by Provider: 12/21/18 19:50 Onset: Just prior to arrival Onset/Duration: Sudden, Persistent, Gone Quality of pain: Achy, Burning, Sharp Severity: Moderate Pain Level: 3 Context: 33 yr old male pt here for concern he has a small piece of boneless fried chicken stuck in his throat that started about an hour seating captain. he was initially seen by the PIT provider and initally was having to spit his saliva into a cup leaning forward as he couldn't get it past this likely esophageal food bolus. he feels like it got stuck about an hour seating captain and he couldn't cough/vomit it up or get fluids to push it down or past it so he came in. he was able to speak in shortening sentences however. hx of this once before in feb 2018 and required gi to do an egd to remove it. he has chronic diffusely poor dentition and was told he needed dentures but can't afford it and he states secondary to his chronic poor dentition which is at its baseline-no worse, that he can't chew his food really good and has to try to swallow larger pieces due to the chronic dental pain. this has been going on for several months to years and is unchanged. he hasn't had any esophageal dilations or any other procedures or f/u for this with a dentist or gi. states he tries to eat softer foods. on my exam after the pt was brought back to a room from triage the pt states he felt the food bolus spontaneously pass before he was given the glucagon and zofran. states these weren't given to him since he had passed it and were held via nursing. pt states he was just headed to the bathroom and leaned forward to unzip his pants to start urinating while in the ed and he felt the likely food bolus move and then he could spontaneously swallow normally again without any symptoms. pt is i nking a mountain dew in front of me in the room to near about completion when i walk in and has no sx and feels back to baseline and is requesting dc. no trauma or injury. no hx of diabetes or asthma. normal bms. no uti sx. no testicular pain/swelling, penile dc/rash/lesions, or concerns for stds. denies swelling or hx of hernias. no abd surgeries unless otherwise noted. no recent abx or steroids other than recent abx for his teeth. no hx of gerd, gb dz, pancreatitis, gi bleed, ulcers, ibs, or crohns. no sick contacts. no uri sx. no rash. no excessive nsaid use or etoh. no recent illness. pain worse with eating. denies changes in color or caliber of stool. no other associated sx. Exacerbated by: Food Relieved by: Remaining still, Other - spitting out saliva and leaning forward Similar symptoms previously: Yes Recently seen / treated by doctor: No - ROS Systems Reviewed and Negative: Yes All other systems reviewed and negative - to include 10 systems unless mentioned in the [facility] ED Medical Screen (to) - General Chief Complaint: Swallowed Foreign Body Stated Complaint: SWALLOWED FOREIGN BODY Primary Care Provider: CLEOPATRA YADAV MD [Primary Care Provider] - Follow up as needed TRAVEL OUTSIDE OF THE [place] IN LAST 30 DAYS: No - [facility] Notes: 12/24/19 18:34 34-year-old male presents to the emergency room for evaluation of having a piece of meat stuck in his throat after eating at 1330 today. Patient reports he had a similar issue over a year ago where he felt like he had food stuck in his throat, had an endoscopy which she states was normal. Patient recently had his upper teeth removed and has an upper denture in place, states he was making beef tips today and feels like have an endocrine half-inch piece of meat got stuck in his throat. Patient states he has vomited 3 times since this started. Denies any chest pain shortness of breath, abdominal pain. I have greeted and performed a rapid initial assessment of this patient. A comprehensive ED assessment and evaluation of the patient, analysis of test results and completion of the medical decision making process will be conducted by additional ED providers. PHYSICAL EXAMINATION: GENERAL: Well-appearing, well-nourished and in no acute distress. HEAD: Atraumatic, normocephalic. EYES: Pupils equal round extraocular movements intact, conjunctiva are normal. ENT; uvula midline. No posterior erythema. No drooling no trismus noted NECK: Normal range of motion CV: s1, s2 regular LUNGS: No respiratory distress Musculoskeletal: Normal range of motion NEUROLOGICAL: Normal speech, normal gait. Speaking in full sentences without any issue SKIN: Warm, Dry, normal turgor, no rashes or lesions noted. my notes 34-year-old male arrives by POV with chief complaint of feeling like he has some pressure in his chest pointing to his manubrial and epigastric area. Patient reports he was eating some beef tips that he had cooked on Monday for 8 hours. He had eaten it every day and was doing well until this afternoon around 1 PM he ate a large piece of meat and because he has no upper teeth that were recently pulled by Dr. Modi the indistinct as the meat bolus hit the back of his throat was to swallow it and when he did he felt it stick in his throat around his manubrium. He has been unable to swallow even his saliva since this time. Patient is otherwise healthy and has had a history of foreign body obstruction [address] Helton and also last year as per above history and physical. Patient did report there is a history of hypertension and his grandmother who is since passed and his mother and aunts. His father side of the family has some heart disease and diabetes and bad teeth. Patient still has lower incisors and premolars but no upper teeth. There are indentations on the gumline which indicate recent extraction. At 2252 patient had a contrasted oral chest x-ray taking by x-ray tech staff revealing contrast goes fully down into the stomach. Patient reports he had vomited while he was in triage prior to arriving in room. He still feels like there is some rawness or something around his manubrial area pointing to this area. At that point I called Dr. Avina surgeon weatherization field technician. At 2258 He advises he will follow-up with this patient in office. We will use some GI cocktail or Magic mouthwash in order to help with some of his symptoms. Also given some Zofran sl. TRAVEL OUTSIDE OF THE [place] IN LAST 30 DAYS: No - HPI Onset: This afternoon Onset/Duration: Sudden Quality of pain: Achy Severity: Mild Pain Level: 1 Associated symptoms: None Exacerbated by: Denies Relieved by: Denies Similar symptoms previously: Yes Recently seen / treated by doctor: No - Related Data Allergies/Adverse Reactions: No Known Allergies Allergy (Verified 12/21/18 19:40) Home Medications: prn xanax Past Medical History - General Information source: Patient - Social History Smoking Status: Former Smoker Cigarette use (# per day): No Chew tobacco use (# tins/day): No Smoking Education Provided: No Frequency of alcohol use: Rare Drug Abuse: None Lives with: Family Family History: Arthritis, CAD, CVA, DM, Hyperlipidemia, Hypertension Patient has suicidal ideation: No Patient has homicidal ideation: No Pulmonary Medical History: Reports: Hx Pneumonia Renal/ Medical History: Denies: Hx Peritoneal Dialysis GI Medical History: Reports: Hx Endoscopy Musculoskeletal Medical History: Reports Hx Musculoskeletal Trauma - sprained ankle Psychiatric Medical History: Reports: Hx Attention Deficit Hyperactivity Disorder - Immunizations Immunizations up to date: Yes Hx Diphtheria, Pertussis, Tetanus Vaccination: No Review of Systems - Review of Systems Constitutional: No symptoms reported EENT: No symptoms reported Cardiovascular: See HPI, Chest pain Respiratory: No symptoms reported Gastrointestinal: See HPI, Abdominal pain, Nausea, Vomiting Genitourinary: No symptoms reported Male Genitourinary: No symptoms reported Musculoskeletal: No symptoms reported Skin: No symptoms reported Hematologic/Lymphatic: No symptoms reported Neurological/Psychological: No symptoms reported Physical Exam - Vital signs Vitals: Temp Pulse Resp BP Pulse Ox 98.5 F 113 H 20 163/99 H 100 12/24/19 18:11 12/24/19 18:11 12/24/19 18:11 12/24/19 18:11 12/24/19 18:11 Interpretation: Hypertensive, Tachycardic - General General appearance: Anxious - HEENT Head: Normocephalic, Atraumatic Eyes: Normal Pupils: PERRL Mouth/Lips: Other - Upper gumline recently edentulous. Lower incisors are intact as well as premolars but no other teeth noted. No molars noted. Pharynx: Normal Neck: Normal - Respiratory Respiratory status: No respiratory distress Chest status: Nontender Breath sounds: Normal Chest palpation: Normal - Cardiovascular Rhythm: Regular Heart sounds: Normal auscultation Murmur: No - Abdominal Inspection: Normal Distension: No distension Bowel sounds: Normal Tenderness: Nontender Organomegaly: No organomegaly - Rectal Prostate: Other - deferred - Genitourinary Scrotum: Other - deferred - Back Back: Normal - Extremities General upper extremity: Normal inspection General lower extremity: Normal inspection - Neurological Neuro grossly intact: Yes Cognition: Normal Orientation: AAOx4 Antwon Coma Scale Eye Opening: Spontaneous Antwon Coma Scale Verbal: Oriented Antwon Coma Scale Motor: Obeys Commands Antwon Coma Scale Total: 15 Speech: Normal Motor strength normal: LUE, RUE, LLE, RLE Sensory: Normal - Psychological Associated symptoms: Normal affect - Skin Skin Temperature: Warm Skin Moisture: Dry Course - Vital Signs Vital signs: Temp Pulse Resp BP Pulse Ox 98.5 F 113 H 20 163/99 H 100 12/24/19 18:11 12/24/19 18:11 12/24/19 18:11 12/24/19 18:11 12/24/19 18:11 - Diagnostic Test Radiology reviewed: Reports reviewed - EKG Interpretation by Me EKG shows normal: Sinus rhythm Rate: Normal, Tachycardia Rhythm: NSR - [address] elevation no ST depression no T wave elevation no T wave depression and axis within normal limits. Critical Care Note - Critical Care Note Comments: I discussed this case with Dr. Avina as noted in HPI. He advises follow-up outpatient. Call tomorrow in office. . Also advises pured or liquid diet until evaluated by personal doctor or himself. Discharge - Discharge Clinical Impression: esophageal irritation Food impaction of esophagus Qualifiers: Encounter type: initial encounter Qualified Code(s): T18.128A - Food in esophagus causing other injury, initial encounter Condition: Fair Disposition: HOME, SELF-CARE Admitting Provider: Surgicalist Additional Instructions: Consume only liquids after sublingual Zofran and may use applesauce or pured / baby food. Do not attempt to eat any solid meat or solid foods or vegetables. Call Dr. Avina for outpatient follow-up tomorrow. Call his office tomorrow. Return to ER if symptoms persist or worsen. Forms: Return to Work Referrals: CLEOPATRA YADAV MD [Primary Care Provider] - Follow up as needed MARIA DE JESUS AVINA MD [ACTIVE STAFF] - Follow up as needed
[2019-12-24] MEDS ORDERED: NORMAL SALINE 1000 ML 1,000 ML IV ONE (22:38)
[2019-12-24] MEDS ORDERED: ONDANSETRON ODT 4 MG TAB (6 TAB/ER DISP) PO PRN (23:01)
[2019-12-24] MEDS ORDERED: NYSTATIN/DEXAMETH/DIPHEN SUSP 120 ML PO ONE ×2 (23:08→23:31)
[2019-12-24] MEDS ORDERED: ONDANSETRON 4 MG TAB.RAPDIS PO ONE (23:09)
--- NOTE | 2019-12-24 23:39 | RADIOLOGY REPORT (SQ) ---
EXAM DESCRIPTION: [facility]: XR CHEST 1 VIEW CLINICAL HISTORY: 34 years Male; R/O FB USE CONTRAST; COMPARISON: 01/28/2018 FINDINGS: Lungs: Lungs are clear, with no focal infiltrate, pneumothorax, or pleural effusion. Mediastinum: Mediastinum is within normal limits for this positioning. Bones: Bony structures are unremarkable. There is oral contrast in the esophagus and stomach. No distention of either. No gross extravasation. IMPRESSION: 1. No acute pulmonary findings. 2. Oral contrast in the distal esophagus and the stomach.
[2019-12-24 23:55] VITALS: BP 126/84
--- NOTE | 2019-12-25 08:35 | EKG REPORT ---
SEVERITY:- NORMAL ECG - SINUS RHYTHM : Confirmed by: Jackie Diaz 25-Dec-2019 08:35:13
== END 2019-12-24 23:58 | disposition home or self-care (01) ==
LOC: ER 18:05
DX: T18.128A Food in esophagus causing other injury, initial encounter (principal); X58.XXXA Exposure to other specified factors, initial encounter; Y93.G9 Activity, other involving cooking and grilling; K08.89 Other specified disorders of teeth and supporting structures; K08.409 Partial loss of teeth, unspecified cause, unspecified class; R11.2 Nausea with vomiting, unspecified; I10 Essential (primary) hypertension; Z87.891 Personal history of nicotine dependence
CPT/HCPCS: 93005; 99285; 96372; 71046; 71045; 70360; 93010; S0119; J1610; J3490

== ENCOUNTER → 2020-01-03 | Outpatient (CLI) | payer BC ==
--- NOTE | 2020-01-03 16:16 | RADIOLOGY REPORT (SQ) ---
EXAM DESCRIPTION: UGI W/ SINGLE CONTRAST IMAGES COMPLETED DATE/TIME: 01/03/2020 9:36 am REASON FOR STUDY: DYSPHAGIA (R13.10) R13.10 DYSPHAGIA, UNSPECIFIED COMPARISON: None. TECHNIQUE: Under fluoroscopic guidance, patient ingested effervescent granules followed by thick and thin barium. Fluoroscopic spot images and routine radiographic images acquired and stored on PACS. 12 MM BARIUM TABLET GIVEN: Barium tablet stuck at the GE junction for approximately 15 minutes before passing into the stomach. LIMITATIONS: None. FLUOROSCOPY TIME: FLUORO TIME: 3.1 minutes 17 images saved to PACS. FINDINGS: NEUROMUSCULAR COORDINATION OF SWALLOW: Normal. No aspiration. ESOPHAGEAL MOTILITY: Normal peristalsis. No esophageal spasm. ESOPHAGEAL MUCOSA: Normal mucosa without masses or ulceration. GASTRO-ESOPHAGEAL JUNCTION: Small hiatal hernia present. No gastroesophageal reflux. STOMACH: Normal without masses or ulcerations. GASTRIC OUTLET: No delay in emptying. Normal pylorus. DUODENAL BULB: Normal distention. No spasm or ulceration. DUODENUM: Mucosa normal. No extrinsic masses or malrotation. PROXIMAL SMALL BOWEL: Mucosa normal. No extrinsic masses or malrotation. NON-GI TRACT STRUCTURES: No significant finding. OTHER: No other significant finding. IMPRESSION: SMALL HIATAL HERNIA. DELAY OF 12 MM BARIUM TABLET AT THE GE JUNCTION FOR APPROXIMATELY 15 MINUTES. COMMENT: None Quality ID [id number]: Final reports for procedures using fluoroscopy that document radiation exposure mel brent, or exposure time and number of fluorographic images (if radiation exposure indices are not avail able) TECHNICAL DOCUMENTATION: JOB ID: [id number] 2010 [employer]- All Rights Reserved Reading location - IP/workstation name: [email or web address] [id number]
== END ==
LOC: RAD 08:30
PROVIDERS: ATTEND Surgery
DX: K44.9 Diaphragmatic hernia without obstruction or gangrene (principal); R13.10 Dysphagia, unspecified
CPT/HCPCS: 74240